=== PATIENT | male | born 1960 | race Caucasian/White ===

== ENCOUNTER 2017-04-28 20:32 | Emergency (ER) | payer BC ==
--- NOTE | 2017-04-28 20:46 | UC ---
Shoulder Pain HPI - HPI Summary HPI Summary: 56 year old male presents with right shoulder pain post fall. - History of Current Complaint Stated Complaint: RIGHT SHOULDER INJURY Time Seen by Provider: 04/28/17 20:42 - Allergies/Home Medications Allergies/Adverse Reactions: Allergies Allergy/AdvReac Type Severity Reaction Status Date / Time Fenofibrate Allergy Fever Verified 04/28/17 20:43 Hydrochlorothiazide Allergy Unknown Verified 04/28/17 20:43 Reaction Details Paroxetine [From Paxil] Allergy Fever Verified 04/28/17 20:43 Home Medications: Home Medications Allopurinol TAB* [Zyloprim 300 MG TAB*] 300 mg PO DAILY 04/28/17 [History Confirmed 04/28/17] Aspirin EC Low Dose* [Ecotrin EC Low Dose 81 MG*] 81 mg PO DAILY 04/28/17 [ History Confirmed 04/28/17] Atorvastatin* [Lipitor 40 MG*] 40 mg PO DAILY 04/28/17 [History Confirmed ] Enalapril TAB* [Vasotec TAB*] 20 mg PO BID 04/28/17 [History Confirmed 04/28/17] Esomeprazole(NF) [Nexium(NF)] 20 mg PO DAILY 04/28/17 [History Confirmed ] Indapamide TAB* [Lozol TAB*] 2.5 mg PO DAILY 04/28/17 [History Confirmed ] Metoprolol Tartrate TAB* [Lopressor TAB*] 100 mg PO BID 04/28/17 [History Confirmed 04/28/17] amLODIPine TAB* [Norvasc 5 mg TAB*] 10 mg PO DAILY 04/28/17 [History Confirmed 04/28/17] cloNIDine TAB* [Catapres 0.1 MG TAB*] 0.2 mg PO BID 04/28/17 [History Confirmed 04/28/17] metFORMIN* [Glucophage 850 MG TAB *] 850 mg PO 0800,1700 04/28/17 [History Confirmed 04/28/17] PMH/Surg Hx/FS Hx/Imm Hx - Surgical History Surgical History: Yes Surgery Procedure, Year, and Place: cholecystectomy - Social History Alcohol Use: Occasionally Substance Use Type: None Smoking Status (MU): Never Smoked Tobacco Review of Systems Constitutional: Negative Skin: Negative Eyes: Negative ENT: Negative Respiratory: Negative Cardiovascular: Negative Gastrointestinal: Negative Genitourinary: Negative Motor: Negative Neurovascular: Negative Musculoskeletal: Other: - right shoulder pain Neurological: Negative Psychological: Negative All Other Systems Reviewed And Are Negative: Yes Physical Exam Triage Information Reviewed: Yes Eye Exam: Normal ENT Exam: Normal Dental Exam: Normal Neck exam: Normal Neck: Positive: 1 Respiratory Exam: Normal Cardiovascular Exam: Normal Abdominal Exam: Normal Musculoskeletal: Positive: Strength Limited @, ROM Limited @, Other: - right shoulder pain Neurological Exam: Normal Psychological Exam: Normal Skin Exam: Normal Shoulder Course/Dx - Differential Dx/Diagnosis Provider Diagnoses: right shoulder contusion Discharge - Discharge Plan Condition: Stable Disposition: HOME Prescriptions: Meloxicam [Mobic] 7.5 mg PO BID PC #30 tab Methocarbamol TAB* [Robaxin 500 MG TAB*] 500 mg PO TID PRN #30 tab PRN Reason: Spasms - Back Patient Education Materials: Shoulder Pain (ED) Referrals: Jaz Leavitt [[facility] [employer] [facility]] - If Needed
[2017-04-28 20:48] VITALS: BP 138/87
--- NOTE | 2017-04-28 21:17 | RAD ---
INDICATION: Right shoulder pain after a fall COMPARISON: None. TECHNIQUE: 4 views of the right shoulder were obtained. FINDINGS: The adequately corticated bones are in normal alignment. Joint spaces appear maintained. No fracture, dislocation or focal bony abnormality is seen. IMPRESSION: Normal radiograph of the right shoulder. If the patient's symptoms persist, follow-up imaging is recommended.
== END 2017-04-28 21:26 | disposition home or self-care (01) ==
LOC: UCCORT 20:32
DX: S40.011A Contusion of right shoulder, initial encounter (principal); W19.XXXA Unspecified fall, initial encounter; Y92.9 Unspecified place or not applicable; Z79.82 Long term (current) use of aspirin
CPT/HCPCS: 99212; G0463